=== PATIENT | male | born 1995 | race Caucasian/White ===

== ENCOUNTER 2020-10-21 14:06 | Outpatient (CLI) | payer BC, SELFPAY ==
[2020-10-21 15:16] LABS: SARS-CoV-2 Ag Negative (Negative)
== END 2020-10-21 14:07 | disposition home or self-care (01) ==
LOC: CHSLAB 14:09
PROVIDERS: PCP Family Medicine; Visit Provider Family Medicine
DX: Z20.822 Contact with and (suspected) exposure to COVID-19 (principal)
CPT/HCPCS: 87426; C9803

== ENCOUNTER 2021-02-19 10:41 | Outpatient (CLI) | payer BC, SELFPAY ==
[2021-02-19 17:51] LABS: Influenza A QL RT-PCR Negative (Negative); Influenza B QL RT-PCR Negative (Negative); SARS-CoV-2 RNA PCR Negative (Negative)
== END 2021-02-19 10:42 | disposition home or self-care (01) ==
LOC: CHSLAB 10:44
PROVIDERS: PCP Family Medicine; Visit Provider Nurse Practitioner Family
DX: Z20.822 Contact with and (suspected) exposure to COVID-19 (principal); R05.9 Cough, unspecified; R09.89 Other specified symptoms and signs involving the circulatory and respiratory systems
CPT/HCPCS: 87502; C9803; U0003; U0005

== ENCOUNTER 2022-07-12 10:02 | Emergency (ER) | payer OTHER, MEDICAID, SELFPAY ==
[2022-07-12 10:10] VITALS: BP 129/76; PULSE 70; RESP 18; TEMP 36.7; O2SAT 99
[2022-07-12 10:29] VITALS: BP 129/76; PULSE 70; RESP 18; TEMP 36.7; O2SAT 99
--- NOTE | 2022-07-12 11:15 | ED.GENADULT ---
HPI - General Adult General Chief complaint: Skin/Abscess/Foreign Body Stated complaint: Rash that is spreading Source: patient Mode of arrival: ambulatory Limitations: no limitations History of Present Illness HPI narrative: Patient presents for evaluation of pruritic rash for last 2 days. He indicates he went hiking [place] three days ago and noted a rash thereafter. Pain was initially in the hairline in the posterior neck. He now has symptoms that involve his back, right side of abdomen and RLE. He applied some cocoa butter lotion. No difficulty breathing or swallowing. Related Data Allergies Allergy/AdvReac Type Severity Reaction Status Date / Time Anesthetics - Amide Type - AdvReac Nausea and Verified 07/12/22 10:26 Select A Vomiting skin allergies ? AdvReac Unknown Uncoded 07/12/22 10:26 Review of Systems Review of Systems: CONSTITUTIONAL: Denies fever, chills, or sweats. EYES: Denies visual changes, redness, or discharge. ENT: Denies rhinorrhea, congestion, sore throat, or otalgia. CARDIOVASCULAR: Denies chest pain, palpitations, or edema. RESPIRATORY: Denies cough or dyspnea. GASTROINTESTINAL: Denies abdominal pain, nausea, vomiting, or diarrhea. GENITOURINARY: Denies dysuria or hematuria. SKIN: Reports pruritic rash to the neck, abdomen, right lower extremity, and back MUSCULOSKELETAL: Denies back pain, joint pain, or myalgia. NEUROLOGIC: Denies headache, numbness, dizziness, or weakness. PSYCHIATRIC: Denies anxiety or depression. [facility] Past Medical History Medical History (Updated 07/12/22 @ 11:17 by BULMARO Rayo, ) No pertinent past medical history Surgical History Surgical History No pertinent past surgical history Family History Family History Father Family history of gastrointestinal disorder Mother Patient's mother is in good health Social History Social History Smoking status: Never smoker Alcohol intake: never Substance use: current Substance use type: marijuana Living arrangements: with family Gender identity (if verbalized by the patient): Male Sexual Orientation (if Verbalized by the Patient): Straight or Heterosexual Spiritual care concerns: No Exam Narrative: GENERAL: Well-appearing, well-nourished, and in no acute distress. HEAD: Normocephalic, atraumatic. EYES: PERRLA and EOMI. ENT: Nares clear, no rhinorrhea or epistaxis. Mucous membranes moist. Oropharynx without tonsillar hypertrophy exudate or other lesions. Bilateral TMs pearly strickland nonbulging NECK: Supple. No adenopathy or masses. No carotid bruits or JVD CHEST: Clear to auscultation. No respiratory distress. No wheezes rales or rhonchi HEART: Regular rate and rhythm. No murmur heard. Normal peripheral pulses. ABDOMEN: Soft, nontender, nondistended, normal active bowel sounds. EXTREMITIES: Normal range of motion. No edema. SKIN: There are annular areas of erythema to right side of the back, left side of abdomen, posterior aspect of his neck and RLE, all fo which are less than 1.5 cm in size NEURO: No focal deficits. Alert and oriented x3. PSYCH: Normal mood and affect. Course Course Emergency Course: This is a 27 year old male who presented for evaluation of a pruritic rash. Exam consistent with poison ortiz. Advised to bathe using Leslee dishsoap and cool water. Apply calamine lotion. Benadryl orally for itching. Will discharge with prednisone. Follow up with primary provider. Go to ER for difficulty breathing. Pt in agreement with plan of care. Level of Care: Express Care Visit Vital Signs Vital signs: Vital Signs Temperature 36.7 C 07/12/22 10:10 Pulse Rate 70 07/12/22 10:10 Respiratory Rate 18 07/12/22 10:10 Blood Pressure 129/76 07/12/22 10:10 Pulse Oximetry 99
== END 2022-07-12 11:15 | disposition home or self-care (01) ==
PROVIDERS: Emergency Provider Nurse Practitioner; PCP Family Medicine
DX: L23.7 Allergic contact dermatitis due to plants, except food (principal)
CPT/HCPCS: 99213; G0463